=== PATIENT | female | born 1995 | race Caucasian/White ===

== ENCOUNTER 2021-11-23 10:33 | Day surgery (SDC) | payer MEDICAID ==
[2021-11-20 13:49] LABS: BASOPHILS # (AUTO) 0.1 X10'3 (0-0.2); BASOPHILS % (AUTO) 0.9 % (0-1); EOSINOPHILS % (AUTO) 0.7 % (0-6); LYMPHOCYTES # (AUTO) 1.6 X10'3 (1.1-4.8); LYMPHOCYTES % (AUTO) 23.3 % (21-51); MEAN CORPUSCULAR HEMOGLOBIN 29.1 PG (27.0-31.0); MEAN CORPUSCULAR HGB CONC 34.2 g/dL (33.0-36.5); MEAN PLATELET VOLUME 9.9 FL (7.4-10.4); MONOCYTES # (AUTO) 0.3 X10'3 (0-0.9); MONOCYTES % (AUTO) 4.3 % (2-12); NEUTROPHILS # (AUTO) 4.8 X10'3 (1.8-7.7); NEUTROPHILS % (AUTO) 70.8 % (42-75); PRE OP HEMATOCRIT 44.8 % (35.0-45.0); PRE OP HEMOGLOBIN 15.3 g/dL (12.0-16.0); PRE OP PLATELET COUNT 198 X10'3 (140-440); RED BLOOD COUNT 5.26 X10'6 (4.20-5.60)
[2021-11-20 14:01] LABS: ALBUMIN 4.1 G/DL (3.4-5.0); ALBUMIN/GLOBULIN RATIO 1.3 (1.1-1.5); ALKALINE PHOSPHATASE 91 IU/L (46-116); BLOOD UREA NITROGEN 7 MG/DL (7-18); BUN/CREATININE RATIO 9.9 (6.6-38.0); CALCIUM 8.9 MG/DL (8.5-10.1); CHLORIDE 104 MMOL/L (99-107); CREATININE 0.71 MG/DL (0.40-0.90); PRE OP ALT 40 U/L (30-65); PRE OP ANION GAP 10 (8-16); PRE OP AST 21 U/L (10-37); PRE OP BILIRUB, TOTAL 0.5 MG/DL (0.0-1.0); PRE OP GLUCOSE 91 MG/DL (70-104); PRE OP POTASSIUM 3.9 MMOL/L (3.4-5.1); PRE OP SODIUM 139 MMOL/L (135-145); TOTAL PROTEIN 7.2 G/DL (6.4-8.2); eGFR > 90 ML/MIN
[2021-11-20 14:05] LABS: HCG SERUM QL NEGATIVE
[~2021-11-23] VITALS: Ht 160 cm; Wt 68.1 kg
[2021-11-23] VITALS (9 sets, daily range): BP systolic 114–137; BP diastolic 84–97
[~2021-11-23 10:33] MED LIST: FLUO-167 PO; FLUT16SP26 BOTHNARES; HYDR-3686 PO; famotidine 20mg tablet PO ONE; ringers solution, lacted 1,000 ML IV SCH
[2021-11-23] MEDS ORDERED: BUPIVAcaine 0.5% inj/PF 30 ML ONE (11:54)
[2021-11-23] MEDS ORDERED: ringers solution, lacted 1,000 ML IV SCH (12:30)
[2021-11-23] MEDS ORDERED: morphine 4 MG/ML inj SYRINge IV PRN (12:30)
[2021-11-23] MEDS ORDERED: meperidine/PF 25mg/ml syringe IV PRN ×2 (12:30)
[2021-11-23] MEDS ORDERED: ondansetron/PF 4mg/2ml inj IV PRN (12:30)
[2021-11-23] MEDS ORDERED: morphine 2 MG/ML inj. syringe IV PRN (12:30)
[2021-11-23] MEDS ORDERED: proCHLORperazine 10 MG/2 ml inj IV PRN (12:30)
[2021-11-23] MEDS ORDERED: dexamethasone sod phosphate 10mg/ml inj ONE (13:27)
[2021-11-23] MEDS ORDERED: sevoflurane 250ml liquid IH ONE (13:27)
[2021-11-23] MEDS ORDERED: midazolam 1 mg/ML 2ml injection ONE (13:32)
[2021-11-23] MEDS ORDERED: fentaNYL/PF 50MCG/1 ML 2ML syringe ONE (13:32)
[2021-11-23] MEDS ORDERED: propofol inj 20 ML IV ONE (13:35)
[2021-11-23] MEDS ORDERED: rocuronium 10mg/ml inj IV ONE (13:35)
[2021-11-23] MEDS ORDERED: ondansetron/PF 4mg/2ml inj ONE (13:49)
[2021-11-23] MEDS ORDERED: glycopyrrolate 0.2mg/ml inj ONE (14:05)
[2021-11-23] MEDS ORDERED: neostigmine methylsulfate 1 MG/ML 10ml vial ONE (14:05)
[2021-11-23] MEDS ORDERED: oxyCODONE/APAP 5-325mg tablet PO PRN ×2 (14:15)
--- NOTE | 2021-11-23 14:19 | NUR ---
Received from OR via , accompanied by Anesthesiologist DR SAUCEDO and report given by Anesthesiolgist. AWAKENS TO VOICE. VITALS STABLE. DRESSINGS DI. ESP[place]ZA PAIN. ABD SOFT.
[2021-11-23] MEDS: meperidine/PF 25mg/ml syringe IV PRN ×2 (14:40→15:13)
--- NOTE | 2021-11-23 15:49 | NUR ---
AWAKE AND ORIENTED. VITALS STABLE. DRESSINGS DI. STATES PAIN IMPROVING. HOME WITH HER SPOUSE AT THIS TIME.
== END 2021-11-23 15:49 | disposition home or self-care (01) ==
LOC: PAS 10:33
PROVIDERS: ATTEND Obstetrics & Gynecology
DX: Z30.2 Encounter for sterilization (principal); F32.9 Major depressive disorder, single episode, unspecified; F41.9 Anxiety disorder, unspecified; Z79.899 Other long term (current) drug therapy; Z20.822 Contact with and (suspected) exposure to COVID-19; Z80.3 Family history of malignant neoplasm of breast
CPT/HCPCS: 36415; 58671; 80053; 84703; 85025; 86885; 86900; 86901; 87635; A4264; C9803; J1100; J2175; J2250; J2270; J2405; J2704; J2710; J3010; J3490; J7030; J7120; S0020; Z7506; Z7512; A4618; A6250